=== PATIENT | female | born 1980 | race Caucasian/White ===

== ENCOUNTER → 2018-03-11 | Outpatient (CLI) | payer OTHER ==
[~2018-03-11] MED LIST: None per pt
[2018-03-11 11:02] LABS: BASOPHILS # (AUTO) 0.02 x10^3/uL (0-0.1); BASOPHILS % (AUTO) 0 % (0-1); EOSINOPHILS # (AUTO) 0.05 x10^3/uL (0-0.4); EOSINOPHILS % (AUTO) 1 % (1-7); LYMPHOCYTES # (AUTO) 2.05 x10^3/uL (1-3.4); LYMPHOCYTES % (AUTO) 24 % (22-44); MD NO; MEAN CORPUSCULAR HEMOGLOBIN 28.9 pg (27.0-34.8); MEAN CORPUSCULAR HGB CONC 34.1 g/dL (32.4-35.8); MEAN CORPUSCULAR VOLUME 84.9 fL (80-100); MEAN PLATELET VOLUME 8.7 fL (7.4-10.4); MONOCYTES # (AUTO) 0.59 x10^3/uL (0.2-0.8); MONOCYTES % (AUTO) 7 % (2-9); NEUTROPHILS # (AUTO) 5.82 x10^3/uL (1.8-6.8); NEUTROPHILS % (AUTO) 68 % (42-75); PLATELET COUNT 345 x10^3/uL (130-400); RED BLOOD COUNT 5.36 x10^6/uL (3.82-5.3); RED CELL DISTRIBUTION WIDTH 12.9 % (9.6-15.2)
[2018-03-11 11:07] LABS: INTERNATIONAL NORMALIZED RATIO 0.98 (0.93-1.1); PROTHROMBIN TIME 10.1 Seconds (9.6-11.5)
[2018-03-11 11:10] LABS: CHLORIDE 104 mmol/L (98-107)
[2018-03-11 11:22] LABS: ALANINE AMINOTRANSFERASE 54 U/L (12-78); ALBUMIN 4.4 g/dL (3.4-5.0); ALKALINE PHOSPHATASE 85 U/L (45-117); ANION GAP 7 mmol/L (5-15); BILIRUBIN,TOTAL 0.3 mg/dL (0.2-1.0); CALCIUM 9.7 mg/dL (8.5-10.1); CREATININE 0.97 mg/dL (0.55-1.02); TOTAL PROTEIN 8.9 g/dL (6.4-8.2)
== END | disposition home or self-care (01) ==
LOC: STAR 10:03
PROVIDERS: ATTEND Specialist
DX: Z01.818 Encounter for other preprocedural examination (principal); N80.9 Endometriosis, unspecified
CPT/HCPCS: 36415; 80053; 84703; 85025; 85610; 85730

== ENCOUNTER 2018-07-04 07:23 | Observation (INO) | payer OTHER ==
[~2018-07-04] VITALS: Ht 175.3 cm; Wt 97.4 kg
[2018-07-04] MEDS ORDERED: LACTATED RINGERS 1,000 ML IV SCH (07:53)
[2018-07-04] MEDS ORDERED: SCOPOLAMINE PATCH, 1.5MG PATCH.TD72 TD ONE ×2 (08:00→15:42)
[2018-07-04] MEDS ORDERED: GABAPENTIN 300 MG CAPSULE PO ONE (08:00)
[2018-07-04] MEDS ORDERED: ACETAMINOPHEN 500 MG TABLET PO ONE (08:00)
[2018-07-04] MEDS ORDERED: LIDOCAINE-MPF 1%, 2ML INFIL ONE (08:00)
[2018-07-04 08:33] LABS: HCG UR SG 1.019 (1.003-1.030)
[2018-07-04] MEDS ORDERED: GABAPENTIN 300 MG CAPSULE ONE (15:42)
[2018-07-04] MEDS ORDERED: ACETAMINOPHEN 500 MG TABLET ONE (15:43)
[2018-07-04] MEDS ORDERED: FENTANYL PF 250 MCG/5ML ONE (18:27)
[2018-07-04] MEDS ORDERED: MIDAZOLAM 1 MG/ML, 2ML ONE (18:27)
[2018-07-04] MEDS ORDERED: ROCURONIUM 10MG/ML,5ML ONE (19:13)
[2018-07-04] MEDS ORDERED: EPINEPHRINE 1 MG/ML, 1ML ONE (19:19)
[2018-07-04] MEDS ORDERED: BUPIVACAINE/PF 0.25% ONE (19:19)
[2018-07-04] MEDS ORDERED: SUGAMMADEX 200 MG/2 ML IVPush ONE (19:21)
[2018-07-04] MEDS ORDERED: KETOROLAC 30 MG/1 ML ONE (20:00)
[2018-07-04] MEDS ORDERED: CEFOTETAN 2 GM ONE (20:00)
[2018-07-04] MEDS ORDERED: DEXAMETHASONE 4 MG/ML, 1ML ONE (20:00)
[2018-07-04] MEDS ORDERED: ROCURONIUM 10 MG/ML,10ML ONE (20:00)
[2018-07-04] MEDS ORDERED: PROPOFOL 10 MG/ML, 20ML ONE (20:00)
[2018-07-04] MEDS ORDERED: ONDANSETRON 2MG/ML, 2ML ONE (20:00)
[2018-07-04] MEDS ORDERED: METOCLOPRAMIDE 5 MG/ML, 2ML IV PRN (20:30)
[2018-07-04] MEDS ORDERED: OXYcodone 5 MG/5 ML ORAL.SOL UDC PO PRN (20:30)
[2018-07-04] MEDS ORDERED: LORazepam 2 MG/ML, 1ML IVPush PRN (20:30)
[2018-07-04] MEDS ORDERED: MEPERIDINE/PF 25MG/0.5ML IVPush PRN (20:30)
[2018-07-04] MEDS ORDERED: hydrALAzine 20 MG/ML, 1ML IV PRN (20:30)
[2018-07-04] MEDS ORDERED: HYDROmorphone 2 MG/ML, 1ML IVPush PRN (20:30)
[2018-07-04] MEDS ORDERED: LABETALOL 5MG/ML, 20ML IV PRN (20:30)
[2018-07-04] MEDS ORDERED: FENTANYL PF 100 MCG/2ML ONE (21:07)
[2018-07-04] MEDS ORDERED: OXYcodone 5 MG/5 ML ORAL.SOL UDC ONE (21:08)
[2018-07-04] MEDS ORDERED: MEPERIDINE/PF 25MG/ML,1ML ONE (21:13)
[2018-07-04] MEDS: FENTANYL PF 100 MCG/2ML IV PRN ×2 (21:15→21:43)
[2018-07-05 00:03] VITALS: BP 105/56
[2018-07-05 03:27] VITALS: BP 101/63
[2018-07-05] MEDS: OXYcodone/APAP 5/325MG TABLET PO PRN ×3 (04:38→12:12)
[2018-07-05 07:19] VITALS: BP 104/56
[2018-07-05] MEDS ORDERED: OXYC-306 PO (09:45)
[2018-07-05] MEDS ORDERED: ONDA4TAB7 PO (09:46)
== END 2018-07-05 12:50 | disposition home or self-care (01) ==
LOC: OUT 07:23 → 4NOR 22:15 → OUT 23:39 → DCLOUNGE 07-05 12:17 → INTOOBSV 07-05 12:50 → OBSVTOIN 07-05 12:50
PROVIDERS: ADMIT Specialist; ATTEND Specialist
DX: N80.0 Endometriosis of uterus (principal); G89.29 Other chronic pain; N94.6 Dysmenorrhea, unspecified; R10.2 Pelvic and perineal pain
CPT/HCPCS: 36415; 58571; 81025; 86850; 86900; 86923; 88307; G0378; J0171; J1100; J1885; J2175; J2250; J2405; J2704; J3010; J3490; J7120; S2900